=== PATIENT | male | born 1940 | race Caucasian/White ===

== ENCOUNTER 2016-10-22 22:59 | Inpatient (IN) | payer MEDICARE, BC ==
--- NOTE | ~2016-10-22 | HP ---
History And Physical [address] [id number] [place]. [address] NAME: EDWIN ADEN : 39 STATUS : ADM Charley PAT#: [id number] AGE: 76 ADM/REG DATE : 10/22/16 MR#: [id number] REPORT SERV DATE: 10/23/16 DICTATED BY: MEDARDO OQUENDO DATE: 10/23/16 REPORT STATUS : Draft TRANSCRIBED BY: MODL DATE: 10/23/16 DATE OF ADMISSION: 10/22/2016 CHIEF COMPLAINT: Generalized weakness. HISTORY OF PRESENT ILLNESS: The patient is a 76-year-old male with past medical history of Parkinson's, chronic neck pain, dementia, hypertension, coronary artery disease with prior CABG, who presents after having generalized weakness today occurring at approximately 12 o'clock. The patient was noted to be trying to do a rearrangement of rooms and had freezing episodes where he would just stay in the similar position without moving. He does have multiple contacts with bronchitis or fevers with even the having being placed on antibiotics for respiratory infection. The patient was also noted to be febrile on arrival. Symptoms have been constant with weakness diffusely, but denies any pain or pressure symptoms. No quality pain or radiation. Weakness has been mild, but does not associated with any nausea, vomiting, headaches, does have fever, but no chills or shortness of breath. The patient denies having any palpitations. Did have recent biopsy of neck for skin cancer that was cancer positive. There are no worsening symptoms or relieving symptoms appreciated. Symptoms still currently present with weakness. Fever has improved while in the emergency room. The patient does report that he has had difficulty with urinating and is constipated typically with bowel movements every four to five days. REVIEW OF SYSTEMS: A 10-point review of systems is negative except for that noted in the HPI. PAST MEDICAL HISTORY: Noted for Parkinson's followed by Dr. Merino, neck surgeries, BPH followed by Dr. Casiano, foot calluses follow up with Podiatry, dementia, hypertension, coronary artery disease. SURGERIES: A 4-vessel bypass in 1999 in [place] while on vacation, hernia, foot surgeries, and neck, multiple, right skin cancer on neck. ALLERGIES: NO ALLERGIES. SOCIAL HISTORY: No smoking, alcohol, or illicits. 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 FAMILY HISTORY: Mother had Alzheimer's. Father had heart disease, fairly premature at young age in 50s. PHYSICAL EXAMINATION: VITAL SIGNS: The patient's blood pressure 177/73 down to 140/43, typically has low diastolic, temperature 100.9 down to 99.5, pulse 64, respirations 16, O2 saturations 95%. GENERAL: Elderly, frail. EYE: No scleral icterus. EOMI. ENT: Nares patent. Tongue midline. NECK: Right-sided neck has surgical stitches. No JVD. History And Physical [address] [address] NAME: EDWIN ADEN : 39 STATUS : ADM Charley PAT#: [id number] AGE: 76 ADM/REG DATE : 10/22/16 MR#: [id number] REPORT SERV DATE: 10/23/16 DICTATED BY: MEDARDO OQUENDO DATE: 10/23/16 REPORT STATUS : Draft TRANSCRIBED BY: MANJIT DATE: 10/23/16 RESPIRATORY: Clear to auscultation in left lung vickers, but does have mild rhonchi in the medial lung vickers. CV: Regular rate. Mildly hypertensive. No pedal edema. GI: Soft, nontender, nondistended. Bowel sounds positive. : Deferred. MUSCULOSKELETAL: Moves all extremities. Does have calluses on lower feet. SKIN: Warm and dry. LYMPH: No cervical or supraclavicular lymphadenopathy. HEME: No bleeding or bruising. NEURO: Does have resting tremor. Alert and oriented to person, place, and situation. Motor, generalized weakness but sensation is still grossly intact in upper and lower extremities. PSYCH: Appropriate mood and affect, pleasant. EKG, normal sinus rhythm, rate of 65, QTc 407. LABS AND IMAGING: CT secondary to constipation, large amount of diffuse colonic stool, small bowel ileus with scattered non-dilated intraluminal air, markedly enlarged prostate, and 2 left renal stones. Chest x-ray, per this va underwriter's read, right middle lobe infiltrate. Lactate 1.2. Procalcitonin 0.05. AST and ALT 43 and 30. Alk phos 109. Brain without contrast, stable moderate advanced diffuse cerebral involutional changes with mild deep white matter ischemic changes. [id number] atherosclerotic changes in internal carotid and vertebral system. Urinalysis, negative leukocyte esterase and nitrate. WBC 7.2, H and H 12 and 35.2, platelets 113, INR 1.2. Sodium 140, potassium 3.8, chloride 101, bicarb 27, BUN and creatinine 39 and 1.26, glucose 110, magnesium 2.1, calcium 9.1. Troponin negative. ASSESSMENT AND PLAN: 1. Likely bronchitis possible pneumonia. 2. Generalized weakness. 3. Hypertension. 4. Parkinson disease. 5. Azotemia. 6. Recent skin cancer resection. 7. Constipation. 8. Urinary retention. 9. Atherosclerotic changes on CT. PLAN: 1. For likely bronchitis pneumonia and febrile illness, IV antibiotics. Does not have leukocytosis and procalcitonin and lactate within normal limits. Supportive treatment with multiple family members positive and on antibiotic treatment at this time. Continue monitor supportively. 2. Generalized weakness. Treat underlying possible bronchitis, constipation, urinary tension, and azotemia with mild dehydration. Monitor clinically. PT/OT. 3. Hypertension. Decrease home medications with thiazides. Decrease lisinopril and monitor blood pressure which is slightly more stable at this time. History And Physical [address] [address] NAME: EDWIN ADEN : 39 STATUS : ADM Charley PAT#: [id number] AGE: 76 ADM/REG DATE : 10/22/16 MR#: [id number] REPORT SERV DATE: 10/23/16 DICTATED BY: MEDARDO OQUENDO DATE: 10/23/16 REPORT STATUS : Draft TRANSCRIBED BY: MODL DATE: 10/23/16 4. Parkinson's. Continue home medication. Azotemia. IV fluids. Hold HCTZ. Decrease MARK inhibitor. 5. Recent skin cancer. No signs of infection at surgical site. 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 Constipation p.r.n. and supportive treatment with suppository and p.o. medication. 6. Urinary retention, Newton. If unable to remove, we will possibly need further assistance by Dr. Casiano who the patient has seen in the past. DDN/MODL Medardo Oquendo MD / [id number] CC: Andrea Orr Jr, MD David Winters, D.O.
--- NOTE | ~2016-10-22 | DS ---
Discharge Summary [address] [place]. [address] NAME: EDWIN ADEN : 39 STATUS : ADM IN [facility]#: [id number] AGE: 76 ADM/REG DATE : 10/23/16 MR#: [id number] REPORT SERV DATE: 10/27/16 DICTATED BY: TORIE ST DATE: 10/27/16 REPORT STATUS : Draft TRANSCRIBED BY: MODL DATE: 10/27/16 ADMISSION DATE: 10/23/2016 DISCHARGE DATE: 10/27/2016 FINAL HOSPITAL DIAGNOSES: 1. Parkinson's crisis. 2. Bronchitis. 3. Flu. 4. Generalized weakness. 5. Urinary retention. 6. History of dementia and benign prostatic hypertrophy. CONSULTATIONS: Cardiology, Dr. Balderas. PROCEDURES: 1. CT of the brain done on the showing stable moderate advanced diffuse cerebral involutional changes and mild deep white matter chronic microvascular ischemic changes, moderate severity atherosclerotic calcifications, intracranial portions of internal carotid arteries and vertebrobasilar system. Abdomen and pelvis showing CT abdomen and pelvis showing colonic fecal stasis, enlarged prostate, nonobstructing kidney stones, left greater than right. 2. Carotid ultrasound done on the showing no evidence of significant stenosis. Echocardiogram done on the showing 55% of EF. CURRENT PHYSICAL FINDINGS AND HPI: Please see dictated H and P by Dr. Callahan. In brief, the patient is a 76-year-old male, who presented with complaint of generalized weakness and febrile episodes. Vital signs at the time of presentation. BP was 177/73. Blood pressures have since normalized. He had a temp of 100.9, which was his T-max. No further temps since admission. Heart rate and respiratory rate were normal. LABORATORY DATA: Initial BMP was unremarkable. Procalcitonin was 0.05. CPK was noted to be elevated at 1446, subsequent was 1364 and 573 on the . He had a proportional bump in troponin, initial was 0.02, subsequent was 4.18 and 4.02 respectively. Lactate was 1.2. Initial white count was 7.2. Flu screen was positive for influenza B. Urinalysis was unremarkable. Blood cultures are negative at four days. Initial chest x-ray was no infiltrate noted. HOSPITAL COURSE: The patient was admitted after positive flu screen was noted. He was treated for flu and placed in appropriate isolation. He was initially started on Levaquin with concern of possible bronchitis or UTI. A Newton catheter was placed for retention. The patient has a history of BPH. He was given nebulizer treatments as needed. He was noted to be markedly constipated on his initial evaluation and appropriate medications were given with positive results. Appropriate medications were given with positive results. Because of his elevated troponin, Cardiology was consulted, it was felt secondary to his elevated CPK no further evaluation was warranted. He was placed on MiraLAX to maintain normal bowel movements. He was eventually ambulated, and his statins and niacin were lowered while his Discharge Summary [address] [address] NAME: EDWIN ADEN : 39 STATUS : ADM IN PAT#: [id number] AGE: 76 ADM/REG DATE : 10/23/16 MR#: [id number] REPORT SERV DATE: 10/27/16 DICTATED BY: TORIE ST DATE: 10/27/16 REPORT STATUS : Draft TRANSCRIBED BY: MANJIT DATE: 10/27/16 CPKs were elevated. He had some mild increase in his dementia, but only required minimal treatment. He was able to void post Newton removal. He was having some mild hematuria, but it appeared to be resolving and not interfering with his ability to urinate. He was felt to reach maximum hospital benefit and was accepted for rehab and discharged to [facility] on the . DISCHARGE MEDICATIONS: Norvasc 5 one per day, aspirin 325 one per day, Voltaren 25 at bedtime, Niaspan 1000 b.i.d., Sinemet 25/100 one and half tabs t.i.d., Restasis eyedrops, Aricept 10, hydrochlorothiazide 25, Prinivil 40 b.i.d., multivitamin, Tamiflu 75 b.i.d. to complete a five day course, MiraLAX one scoop daily, Levaquin 750 one per day to finish a seven-day course, Colace 100 b.i.d., glycerin suppository p.r.n., Lortab 5/325 q.4 p.r.n., Zofran sublingual p.r.n., albuterol nebs as needed, Crestor 40 one per day, glucosamine t.i.d., coenzyme Q10, vitamin C, and vitamin E. TLF/MODL Torie St M.D. / [id number] CC: Ira Milian D.O.
--- NOTE | ~2016-10-22 | CN ---
Consultation Report [address] [place]. [address] NAME: EDWIN ADEN : 39 STATUS : ADM IN PAT#: [id number] AGE: 76 ADM/REG DATE : 10/23/16 MR#: [id number] REPORT SERV DATE: 10/24/16 DICTATED BY: DANN RINCON DATE: 10/23/16 REPORT STATUS : Draft TRANSCRIBED BY: MODL DATE: 10/23/16 CARDIOLOGY CONSULT DATE OF CONSULTATION: 10/23/2016 REQUESTING REASON: Abnormal troponin. HISTORY OF ILLNESS: Mr. Aden is a 76-year-old male with severe progressive Parkinson's disease and dementia who is admitted with severe muscle spasms, "I was frozen." He had also been having some fevers and symptoms of an upper respiratory tract infection. An influenza A was positive on admission. He had been admitted to the Hospitalist Service. Prior to his severe muscle spasms related to progressive Parkinson's disease, he denies having any symptoms of chest pain or angina. He had no exertional shortness of breath. He has had no palpitations or syncope. He denies orthopnea or edema. Admission EKG showed sinus rhythm with nondiagnostic ST changes that were unchanged. Initial troponin was negative. Subsequent troponin was positive at 4.0, in the setting of elevated CPK and increased CK-MB. REVIEW OF SYSTEMS: Pertinent positives and negatives are as outlined above, all else negative. PAST MEDICAL HISTORY: 1. Parkinson's disease. 2. Dementia. 3. Sinus bradycardia. 4. PACs. 5. Hypertension. MEDICATIONS: His current home medications are: 1. HCTZ 25 mg daily. 2. Aspirin 81 mg daily. 3. Amlodipine 5 mg daily. 4. Lisinopril 40 mg daily. 5. Niacin 1000 mg twice daily. 6. Crestor 40 mg daily. 7. Lortab p.r.n. 8. Voltaren 25 mg at bedtime. 9. CoQ10 supplementation. 10.Vitamin C supplementation. ALLERGIES: NO KNOWN DRUG ALLERGIES. SOCIAL HISTORY: He lives at home with family support. He does not consume alcohol or use tobacco products. Consultation Report [address] [place]. [address] NAME: EDWIN ADEN : 39 STATUS : ADM IN PAT#: [id number] AGE: 76 ADM/REG DATE : 10/23/16 MR#: [id number] REPORT SERV DATE: 10/24/16 DICTATED BY: DANN RINCON DATE: 10/23/16 REPORT STATUS : Draft TRANSCRIBED BY: MANJIT DATE: 10/23/16 FAMILY HISTORY: No significant family history of premature CAD, cardiomyopathy, or sudden . PHYSICAL EXAMINATION: VITALS: Temp 99.6, Pulse 64, Respirations 16, BP 150/70. GENERAL: A well developed but chronically ill-appearing male who is in bed with no distress. HEENT: Sclerae anicteric, mucous membranes moist and without lesions. NECK: No jugular venous distention. No hepatojugular reflux, carotid upstrokes 2+ and symmetric, there are no carotid or subclavian bruit. LUNGS: Mildly decreased breath sounds throughout with no wheezes or crackles. CARDIOVASCULAR: Regular with distant S1 and S2, no audible S3. No audible murmurs. No parasternal lift. PMI is not palpable. ABDOMEN: Soft and nontender. Bowel sounds positive and normoactive. No hepatomegaly, no masses, no abdominal bruit. PULSES: Radial and dorsalis pedis pulses 2+ and symmetric. EXTREMITIES: Warm and without edema. SKIN: No clubbing or cyanosis, no rashes or lesions. IMPRESSION: 1. Abnormal troponin, suspect noncardiac etiology. 2. Sinus bradycardia, chronic. 3. Influenza, acute. 4. Parkinson's disease. 5. Dementia. PLAN: Mr. Aden is a 76-year-old male who presented with severe muscle spasms on both statin and aspirin therapy with progressive Parkinson's disease. He states "I was frozen" with severe muscle spasm and pain. He has elevated CPK and MB in proportion to his troponin with possible musculoskeletal etiology. No symptoms of angina. No EKG changes. Avoid statin therapy due to increased CPK and muscle pain. No beta-agustin due to history of bradycardia. Recommend conservative medical management in this otherwise asymptomatic male with no EKG changes and other possible etiology for his increased troponin. Recommend fondaparinux and aspirin with no plans for coronary angiography, per [place] 5 trial due to equivalent therapeutic affect to Lovenox with increased bleeding risk. I agree with echocardiogram. Continue MARK inhibitor and calcium channel agustin. AEA/MODL Dann Rincon M.D. / [id number] Consultation Report [address] [address] [place]. [address] NAME: EDWIN ADEN : 39 STATUS : ADM IN PAT#: [id number] AGE: 76 ADM/REG DATE : 10/23/16 MR#: [id number] REPORT SERV DATE: 10/24/16 DICTATED BY: DANN RINCON. DATE: 10/23/16 REPORT STATUS : Draft TRANSCRIBED BY: MODL DATE: 10/23/16 CC: MD Duncan Arenas D.O.
[2016-10-22 21:05] LABS: BASOPHILS 0.1 %; BASOPHILS ABSOLUTE 0.01 10/3/uL (0.0-0.16); EOSINOPHILS 0 %; HEMATOCRIT 35.2 % (40.0-51.0); IMMATURE GRANULOCYTES 0.1 %; IMMATURE GRANULOCYTES ABSOLUTE 0.01 10/3/uL (0.0-0.11); LYMPHOCYTES 14.2 %; LYMPHOCYTES ABSOLUTE 1.02 10/3/uL (0.67-4.30); MEAN CORPUS HGB CONC 34.1 g/dL (32.0-36.0); MEAN CORPUSCULAR HEMOGLOB 31.6 pg (26.0-34.0); MEAN CORPUSCULAR VOLUME 92.6 fL (80-100); MEAN PLATELET VOLUME 8.5 fL (9.2-13.0); MONOCYTES 5.3 %; MONOCYTES ABSOLUTE 0.38 10/3/uL (0.21-1.20); NEUTROPHILS 80.3 %; NEUTROPHILS ABSOLUTE 5.75 10/3/uL (2.02-8.40); PLATELET COUNT 113 10/3/uL (150-400); RBC DISTRIBUTION WIDTH 13.1 % (12.0-16.0); WHITE BLOOD CELLS 7.2 10/3/uL (4.5-10.5)
[2016-10-22 21:11] LABS: MANUAL DIFF NO %
[2016-10-22 21:14] LABS: INTERNATIONAL NORMAL RATI 1.2 UNITS (-); PARTIAL THROMBO TIME 32.3 SEC (22.5-37.2); PROTIME (NOT ORD) 14.6 SEC (12.0-14.5)
[2016-10-22 21:21] LABS: CALCIUM, SERUM 9.1 MG/DL (8.5-10.4); CHEST PAIN PROFILE TAT 0 Hrs 20 Mins; CHLORIDE, SERUM 101 MMOL/L (96-112); CO2 (CARBON DIOXIDE) 27 MMOL/L (24-34); CREATININE 1.26 MG/DL (0.70-1.30); GFR AFRICAN AMERICAN 63 ML/MIN (>=60); GFR NON AFRICAN AMERICAN 55 ML/MIN (>=60); GLUCOSE, SERUM 110 MG/DL (60-99); POTASSIUM, SERUM 3.8 MMOL/L (3.5-5.3); SODIUM, SERUM 140 MMOL/L (135-148); TROPONIN I <0.02 NG/ML (<0.05)
[2016-10-22 21:22] LABS: BUN (BLOOD UREA NITROGEN) 39 MG/DL (6-23)
[2016-10-22 21:25] LABS: BAND NEUTROPHILS 6 %; ER DIFF TAT 0 Hrs 24 Mins; LYMPHOCYTES 12 %; LYMPHOCYTES ABSOLUTE (CALC) 0.86 10/3/uL (0.67-4.30); MONOCYTES 4 %; MONOCYTES ABSOLUTE (CALC) 0.29 10/3/uL (0.21-1.20); NEUTROPHILS ABSOLUTE (CALC) 6.05 10/3/uL (2.02-8.40); SEGMENTED NEUTROPHIL (0) 78 %; TOTAL NUCLEATED CELLS 100
[2016-10-22 21:26] LABS: PLATELET ESTIMATE SLT DEC (ADEQUATE)
[~2016-10-22 22:59] MED LIST: ASAB PO; COQ10100 MG OR; CRESTOR40 MG PO; GLUCCHONDR PO; HYDROCHLOROT25 MG PO; LISINOPRIL40 MG PO; LORTAB10 PO; MULTIVITAMI1 PO; NIASPAN500 PO; NORV5 PO; RESTASIS OPH; VITC500 PO; VITE PO; VOLT25 PO
[2016-10-22 23:29] LABS: ASCORBIC ACID (UR NOT ORDER) 40 (NEG); BILIRUBIN, URINE NEGATIVE (NEG); ER URINALYSIS TAT 0 Hrs 00 Mins; KETONE, URINE 20 MG/DL (NEG); LEUKOCYTE ESTERASE(NOT OR NEG (NEG); NITRITE (URINE) NEG (NEG); WBC (NOT ORDERED) (RFLEX) 1 (0-5)
[2016-10-22 23:34] LABS: ALBUMIN 4.3 G/DL (3.5-5.0); DIRECT BILIRUBIN 0.1 MG/DL (0.0-0.4); INDIRECT BILIRUBIN(NOT ORDER) 0.3 MG/DL (0.1-0.9); TOTAL BILIRUBIN 0.4 MG/DL (0-1.2)
[2016-10-23 00:12] LABS: PROCALCITONIN 0.05 ng/mL (<0.5)
[2016-10-23 08:44] LABS: HEMATOCRIT 32.9 % (40.0-51.0); HEMOGLOBIN 11.4 g/dL (13.6-17.8); MEAN CORPUS HGB CONC 34.7 g/dL (32.0-36.0); MEAN CORPUSCULAR HEMOGLOB 31.8 pg (26.0-34.0); MEAN CORPUSCULAR VOLUME 91.6 fL (80-100); MEAN PLATELET VOLUME 8.8 fL (9.2-13.0); PLATELET COUNT 94 10/3/uL (150-400); RBC DISTRIBUTION WIDTH 12.7 % (12.0-16.0); RED CELL COUNT 3.59 10/6/uL (4.7-6.1); WHITE BLOOD CELLS 5.3 10/3/uL (4.5-10.5)
[2016-10-23 08:46] LABS: MANUAL DIFF YES %
[2016-10-23 09:12] LABS: CALCIUM, SERUM 8.5 MG/DL (8.5-10.4); CHLORIDE, SERUM 107 MMOL/L (96-112); CK-MB 36.6 NG/ML; CO2 (CARBON DIOXIDE) 24 MMOL/L (24-34); CPK 1446 U/L (0-200); CREATININE 1.01 MG/DL (0.70-1.30); GFR AFRICAN AMERICAN 83 ML/MIN (>=60); GFR NON AFRICAN AMERICAN 71 ML/MIN (>=60); POTASSIUM, SERUM 3.6 MMOL/L (3.5-5.3); SODIUM, SERUM 143 MMOL/L (135-148)
[2016-10-23 09:13] LABS: BUN (BLOOD UREA NITROGEN) 35 MG/DL (6-23); CKMB INDEX (NOT ORD) 2.5; GLUCOSE, SERUM 84 MG/DL (60-99); TROPONIN I 4.18 NG/ML (<0.05)
[2016-10-23 09:28] LABS: LYMPHOCYTES 6 %; LYMPHOCYTES ABSOLUTE (CALC) 0.32 10/3/uL (0.67-4.30); MONOCYTES ABSOLUTE (CALC) 0.95 10/3/uL (0.21-1.20); NEUTROPHILS ABSOLUTE (CALC) 4.03 10/3/uL (2.02-8.40); PLATELET ESTIMATE DEC (ADEQUATE); SEGMENTED NEUTROPHIL (0) 76 %; TOTAL NUCLEATED CELLS 100
[2016-10-23 09:52] LABS: REACTIVE LYMPHS OCC (0-2%) (0-5%)
[2016-10-23 09:53] LABS: MONOCYTES 18 %; PATH REVIEW YES; RBC MORPHOLOGY NORM (NORMAL)
[2016-10-23 11:09] LABS: PATH REVIEW SEE PATHOLOGY REPORT
[2016-10-23 11:56] LABS: INFLUENZA A SCREEN NEGATIVE (NEGATIVE)
[2016-10-23 11:58] LABS: INFLUENZA B SCREEN POSITIVE (NEGATIVE)
[2016-10-23 16:23] LABS: CK-MB 28.1 NG/ML
[2016-10-23 16:25] LABS: CKMB INDEX (NOT ORD) 2.1; TROPONIN I 4.02 NG/ML (<0.05)
[2016-10-25 06:58] LABS: HEMATOCRIT 34.3 % (40.0-51.0); HEMOGLOBIN 12.3 g/dL (13.6-17.8); MEAN CORPUS HGB CONC 35.9 g/dL (32.0-36.0); MEAN CORPUSCULAR VOLUME 89.3 fL (80-100); MEAN PLATELET VOLUME 9.1 fL (9.2-13.0); PLATELET COUNT 98 10/3/uL (150-400); RBC DISTRIBUTION WIDTH 12.8 % (12.0-16.0); RED CELL COUNT 3.84 10/6/uL (4.7-6.1); WHITE BLOOD CELLS 7.3 10/3/uL (4.5-10.5)
[2016-10-25 07:01] LABS: MANUAL DIFF YES %
[2016-10-25 07:16] LABS: BUN (BLOOD UREA NITROGEN) 20 MG/DL (6-23); CALCIUM, SERUM 8.2 MG/DL (8.5-10.4); CHLORIDE, SERUM 103 MMOL/L (96-112); CO2 (CARBON DIOXIDE) 28 MMOL/L (24-34); CPK 573 U/L (0-200); CREATININE 0.87 MG/DL (0.70-1.30); GFR AFRICAN AMERICAN 96 ML/MIN (>=60); GFR NON AFRICAN AMERICAN 83 ML/MIN (>=60); GLUCOSE, SERUM 86 MG/DL (60-99); POTASSIUM, SERUM 3.8 MMOL/L (3.5-5.3); SODIUM, SERUM 140 MMOL/L (135-148)
[2016-10-25 07:39] LABS: BAND NEUTROPHILS 6 %; LYMPHOCYTES 14 %; LYMPHOCYTES ABSOLUTE (CALC) 1.02 10/3/uL (0.67-4.30); MONOCYTES 15 %; NEUTROPHILS ABSOLUTE (CALC) 5.18 10/3/uL (2.02-8.40); PLATELET ESTIMATE DEC (ADEQUATE); RBC MORPHOLOGY NORM (NORMAL); SEGMENTED NEUTROPHIL (0) 65 %; TOTAL NUCLEATED CELLS 100
== END 2016-10-27 18:33 | DRG 56 ==
LOC: ER 22:59 → 4SO 23:59
PROVIDERS: Emergency Medicine; Internal Medicine; Student in an Organized Health Care Education/Training Program
DX: G20 Parkinson's disease (principal); J18.1 Lobar pneumonia, unspecified organism; E86.0 Dehydration; F02.80 Dementia in other diseases classified elsewhere, unspecified severity, without behavioral disturbance, psychotic disturbance, mood disturbance, and anxiety; R00.1 Bradycardia, unspecified; I10 Essential (primary) hypertension; I25.10 Atherosclerotic heart disease of native coronary artery without angina pectoris; Z95.1 Presence of aortocoronary bypass graft; R53.1 Weakness; G89.29 Other chronic pain; M54.2 Cervicalgia; Z85.828 Personal history of other malignant neoplasm of skin; K59.00 Constipation, unspecified; J40 Bronchitis, not specified as acute or chronic; R79.89 Other specified abnormal findings of blood chemistry; N40.1 Benign prostatic hyperplasia with lower urinary tract symptoms; R33.8 Other retention of urine; J10.1 Influenza due to other identified influenza virus with other respiratory manifestations; Z79.82 Long term (current) use of aspirin; R31.9 Hematuria, unspecified
CPT/HCPCS: 70450; 71010; 74020; 74176; 80048; 80076; 81001; 82550; 82553; 83605; 83735; 84145; 84484; 85025; 85610; 85730; 87040; 87804; 93005; 93306; 93880; 94640; 97161-GP; 97165-GO; 97530-GO; 99285; A9270-GY; G8978-CL-GP; G8979-CJ-GP; G8987-CJ-GO; G8988-CI-GO; J1652; J1956